=== PATIENT | female | born 1950 | race Caucasian/White ===

== ENCOUNTER 2016-12-16 20:25 | Observation (INO) ==
[2016-12-16] MEDS ORDERED: 0.9 % Sodium Chloride 1,000 ML IVC ONE (20:42)
--- NOTE | 2016-12-16 21:04 | Emergency Department Note ---
Disposition Clinical Impression: Altered awareness, transient, NESHA (acute kidney injury) Disposition: Admitted As Inpatient Condition: Good Time of Disposition: 21:22 Altered Mental Status HPI - General Chief Complaint: ED Altered Mental Status Stated Complaint: AMS Source: patient, EMS Limitations: no limitations Nursing Notes Reviewed: Yes Vital Signs Reviewed: Yes - History of Present Illness HPI Narrative: Patient is a 69-year-old female who was brought in by EMS for a transient periods of altered mental awareness. EMS states that for the first 20 minutes of their time with her she was alert and oriented only to herself. While in route she became alert nor to 4. Patient reports that she woke up this morning in an altered state and confusion that waxes and wanes. There period of clarity she was able to call EMS and she was taken to [place] ED. Patient had a workup there to include CT scan of her head which was negative for hemorrhage. After negative workup patient was discharged home. A few hours later patient became altered again which led to EMS bringing her in this time today. Patient was started on antibiotics for right-sided otitis media 1 day ago. Patient states she started her antibiotic regimen. 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 - Related Data Home Medications Medication Instructions Recorded Confirmed Bydureon 2 mg SQ 12/15/16 Cymbalta 90 mg PO DAILY 12/15/16 Estropipate 1.25 mg PO DAILY 12/15/16 Lamictal 150 mg PO DAILY 12/15/16 Lisinopril 10 mg PO DAILY 12/15/16 Metoprolol 25 mg PO DAILY 12/15/16 PriLOSEC 20 mg PO DAILY 12/15/16 Synthroid 112 mcg PO QAM 12/15/16 metFORMIN 500 mg PO BID 12/15/16 Ibuprofen [Ibuprofen] 800 mg PO TID PRN 12/16/16 12/16/16 Mirabegron [Myrbetriq] 25 mg PO DAILY 12/16/16 12/16/16 Previous Rx's Medication Instructions Recorded Santiago/Poly/HC *EAR* SOLN 4 drop RIGHT EAR QID #1 solution 12/15/16 [Cortisporin *EAR* SOLN] Allergies Allergy/AdvReac Type Severity Reaction Status Date / Time acetaminophen [From Vicodin] AdvReac Itching Verified 12/15/16 16:42 hydrocodone [From Vicodin] AdvReac Itching Verified 12/15/16 16:42 All systems ED: reviewed and negative except as stated. Review of Systems: As Per HPI Constitutional: Denies: fever, weakness Eyes: Denies: eye pain, eye discharge ENT ED: Denies: ear pain, throat pain Cardiovascular: Denies: chest pain, palpitations Respiratory: Denies: cough, dyspnea Gastrointestinal: Denies: abdominal pain, nausea, vomiting, diarrhea, hematemesis, melena, hematochezia Genitourinary: Denies: urgency, dysuria, hematuria, discharge Musculoskeletal: Denies: back pain, neck pain Integumentary: Denies: rash, abrasion Neurological: Denies: headache, weakness Psychiatric: Reports: depression. Denies: anxiety Endocrine: Reports: fatigue Past Medical History - Past Medical History Source: patient Medical history: Reports: diabetes, hypertension, thyroid disease Surgical history: Reports: appendectomy, cholecystectomy, hysterectomy, other ( Donated kidney, TMJ, neck surgery) Psychiatric history: Reports: depression - Social History Smoking Status: Former smoker Smokeless Tobacco Status: No Alcohol use: Reports: none Drug use: Reports: none Physical Exam - General Limitations: no limitations General appearance: alert, in no apparent distress - Head Head exam: atraumatic, normocephalic, normal inspection - Eye Eye exam: Present: normal appearance, PERRL, EOMI - ENT ENT exam: normal exam, normal oropharynx, mucous membranes moist - Neck Neck exam: Present: normal inspection, full ROM, trachea midline - Chest Chest inspection: Present: normal inspection, symmetric chest wall rise - Respiratory Respiratory exam: Present: normal lung sounds bilaterally - Cardiovascular Cardiovascular exam: Present: regular rate, normal rhythm, normal heart sounds - Abdominal Exam Abdominal exam: Present: soft, Non-Tender. Absent: tenderness, distention, guarding, rebound, rigidity Course - Consultations Consultation #1: Dr. Vargas and the hospitalist has accepted patient for admission and continuation of care. Time: 23:15 Consultation #2: I discussed patient's transient altered well as with Dr. Bone of neurology who states he was see patient tomorrow and patient may possibly need EEG study to see if she is having underlying seizure activity. Arachnoid cysts found on an earlier CT per Dr. Bone states should not cause any issues. Time: 23:25 Vital Signs Temperature 98.7 F 12/16/16 20:27 Pulse Rate 66 12/16/16 20:27 Respiratory Rate 18 12/16/16 20:27 Blood Pressure 108/56 12/16/16 20:27 O2 Sat by Pulse Oximetry 97 12/16/16 20:27 Temperature 98.7 F 12/16/16 20:27 Pulse Rate 66 12/16/16 20:27 Respiratory Rate 18 12/17/16 00:01 Blood Pressure 111/79 12/17/16 00:01 O2 Sat by Pulse Oximetry 97 12/16/16 20:27 Oxygen Delivery Oxygen Delivery Room Air Altered Mental Status - MDM Narrative Medical decision making narrative: Patient presents with transient periods of altered mental status of unknown etiology currently alert and oriented 4 and in no acute distress. Patient requests to be able to go home because she has a small dog at home and she lives by herself. Patient states that she understands that we do not know what is causing these periods of altered mental state, and would like to continue her workup but no findings that she has no one to help her out or to check on her dog. Patient states that when she is care for her dog in order she will be back to continue her workup and possible admission. Patient currently appears to have clear mental capability and capacity to make decisions for herself. Patient came in by EMS and will not drive home and will be advised not to drive at all until her workup is complete. Patient agrees to have all her lab work drawn and performed before discharge. Patient understands and agrees to treatment and plan. While patient was undergoing her workup she was able to find someone to watch her dog and has decided to stay. Patient's workup shows a mildly elevated creatinine. Patient has a slight NESHA. At this moment I do not have a clear etiology for patient's hypotension for transient episodes of altered awareness/confusion. Recommend admission for further workup. Patient understands and agrees his treatment and plan. Patient has been accepted for admission by Dr. Vargas the hospitalist. Discussed case with Dr. Bone of neurology for possibility of underlying seizure activity , and CT findings of arachnoid cyst. He states arachnoid cyst should not be the cause of patient's hypotension. Given the patient has no neurological deficits he believes underlying seizure activity may be occurring but we will assess patient tomorrow and if needed, perform EEG. - Medical Records Medical records reviewed: Yes I reviewed the patient's medical records. CT scan from earlier at [place] ED shows arachnoid cyst - Lab Data Lab results reviewed: Yes I reviewed the patient's lab results. Result diagrams: 12/16/16 21:23 12/16/16 21:23 Lab Results 12/16/16 12/16/16 12/16/16 Range/Units 21:23 21:23 21:23 WBC 7.8 (4.3-11.1) K/mcL RBC 4.55 (3.82-4.97) M/mcL Hgb 13.1 (11.5-15.4) g/dL Hct 39.7 (35.3-44.9) % MCV 87.3 (83.0-100.0) fL MCH 28.8 (28.0-33.3) pg MCHC 33.0 (31.6-35.5) g/dL RDW 12.7 (11.5-14.5) % Plt Count 213 (140-400) K/mcL MPV 9.9 (9.4-12.4) fL Immature Gran % 0.4 (0-4) % Seg Neutrophils % 64.9 % Lymphocytes % 24.0 % Monocytes % 8.6 % Eosinophils % 1.7 % Basophils % 0.4 % Neutrophils # 5.0 (1.6-8.9) K/mcL Lymphocytes # 1.9 (0.6-4.6) K/mcL Monocytes # 0.7 (0.0-1.3) K/mcL Eosinophils # 0.1 (0.0-0.6) K/mcL Basophils # 0.0 (0.0-0.2) K/mcL Sodium 137 (136-145) mEq/L Potassium 4.5 (3.5-4.5) mEq/L Chloride 104 (98-109) mEq/L Carbon Dioxide 27 (19-29) mEq/L BUN 15 (7-20) mg/dL Creatinine 1.16 H (0.57-1.11) mg/dL Est GFR ( Amer) 56 L (> 60) Est GFR (Non-Af Amer) 47 L (> 60) BUN/Creatinine Ratio 13 (6-26) Glucose 92 (70-99) mg/dL Calculated Osmolality 284 (280-300) Calcium 9.6 (8.6-10.8) mg/dL Troponin I 0.01 (0-0.03) ng/mL Urine Color (Yellow) Urine Clarity (Clear) Urine pH (5.0-8.0) pH Units Ur Specific [place] (1.010-1.025) Urine Protein (Neg-Trace) mg/dL Urine Glucose (UA) (Normal) mg/dL Urine Ketones (Negative) mg/dL Urine Blood (Negative) Urine Nitrite (Negative) Urine Bilirubin (Negative) Urine Urobilinogen (Normal) mg/dL Ur Leukocyte Esterase (Negative) Urine Microscopic RBC (0-3) per hpf Urine Microscopic WBC (0-3) per hpf Ur Squamous Epith Cells (None-Few) per lpf Urine Bacteria (None-Few) per hpf Hyaline Casts (None-Few) per lpf Ur Culture Indicated? (NO) Urine Opiates Screen (Savndu=841) ng/mL Ur Barbiturates Screen (Rqnnio=997) ng/mL Ur Phencyclidine Scrn (Cutoff=25) ng/mL Ur Amphetamines Screen (Dwgavw=2462) ng/mL U Benzodiazepines Scrn (Svpxuf=136) ng/mL Urine Cocaine Screen (Cutoff= 300) ng/mL U Marijuana (THC) Screen (Cutoff = 50) ng/mL Ethyl Alcohol < 10 (0-10) mg/dL 12/16/16 12/16/16 Range/Units 22:38 22:38 WBC (4.3-11.1) K/mcL RBC (3.82-4.97) M/mcL Hgb (11.5-15.4) g/dL Hct (35.3-44.9) % MCV (83.0-100.0) fL MCH (28.0-33.3) pg MCHC (31.6-35.5) g/dL RDW (11.5-14.5) % Plt Count (140-400) K/mcL MPV (9.4-12.4) fL Immature Gran % (0-4) % Seg Neutrophils % % Lymphocytes % % Monocytes % % Eosinophils % % Basophils % % Neutrophils # (1.6-8.9) K/mcL Lymphocytes # (0.6-4.6) K/mcL Monocytes # (0.0-1.3) K/mcL Eosinophils # (0.0-0.6) K/mcL Basophils # (0.0-0.2) K/mcL Sodium (136-145) mEq/L Potassium (3.5-4.5) mEq/L Chloride (98-109) mEq/L Carbon Dioxide (19-29) mEq/L BUN (7-20) mg/dL Creatinine (0.57-1.11) mg/dL Est GFR ( Amer) (> 60) Est GFR (Non-Af Amer) (> 60) BUN/Creatinine Ratio (6-26) Glucose (70-99) mg/dL Calculated Osmolality (280-300) Calcium (8.6-10.8) mg/dL Troponin I (0-0.03) ng/mL Urine Color Yellow (Yellow) Urine Clarity Clear (Clear) Urine pH 6.0 (5.0-8.0) pH Units Ur Specific [place] 1.030 H (1.010-1.025) Urine Protein Trace (Neg-Trace) mg/dL Urine Glucose (UA) Normal (Normal) mg/dL Urine Ketones Negative (Negative) mg/dL Urine Blood Negative (Negative) Urine Nitrite Negative (Negative) Urine Bilirubin Negative (Negative) Urine Urobilinogen Normal (Normal) mg/dL Ur Leukocyte Esterase Negative (Negative) Urine Microscopic RBC 0-3 (0-3) per hpf Urine Microscopic WBC 3-5 H (0-3) per hpf Ur Squamous Epith Cells Many H (None-Few) per lpf Urine Bacteria Few (None-Few) per hpf Hyaline Casts None Seen (None-Few) per lpf Ur Culture Indicated? NO (NO) Urine Opiates Screen Negative (Vkgwyy=689) ng/mL Ur Barbiturates Screen Negative (Zilhub=354) ng/mL Ur Phencyclidine Scrn Negative (Cutoff=25) ng/mL Ur Amphetamines Screen Negative (Qbokqh=1024) ng/mL U Benzodiazepines Scrn Negative (Xauyos=552) ng/mL Urine Cocaine Screen Negative (Cutoff= 300) ng/mL U Marijuana (THC) Screen Negative (Cutoff = 50) ng/mL Ethyl Alcohol (0-10) mg/dL - Radiology Data Radiology results reviewed: Yes I reviewed the patient's radiology results. Chest X-Ray 12/16/16 21:01 IMPRESSION: No acute abnormality. D/ / Jose Narayanan MD / Jose Narayanan MD Interpreting Provider: Jose Narayanan MD - EKG Data EKG attestation: Yes I reviewed and interpreted this EKG. EKG shows normal: sinus rhythm Rate: normal Rhythm: NSR TPA Checklist - LKW: 3-4.5 hrs Add. Warnings/Precautions Patient/family understanding: The patient/family members have been counseled and understood the risk, benefit , and alternatives of treatment.
--- NOTE | 2016-12-16 21:25 | Emergency Department Note ---
START Narrative - START START: I examined this patient and my medical decision-making was reviewed with the ADMINISTRATION PHYSICIAN/PA/Advanced Practice Nurse/Resident Physician. I agree with the documented findings, disposition and treatment plan as described except to the extent set forth below. ED attending note: I saw this Patient with the emergency medicine resident Dr. VASQUEZ. Please see a copy of his note for details of the H&P, evaluation, management and disposition of this emergency Department patient. We independently had [id number] contact with the patient. Briefly: A 66-year-old female was seen earlier several hours ago at [facility] for transient awareness head CT lab work and EKG were within normal limits and patient discharged home. To a half hours later same thing happening she came here by EMS Accu-Chek was 73 from the field. Patient is awake and alert offering no complaints at this time there was no predisposing symptomatology. No changes in medications. Denies any substance abuse. Neurologically she is nonfocal. We offered the patient workup and admission the patient declined stating that she had not take care of her small dog at home. We discussed with the patient that we would prefer for her to stay but she should be careful going home to not operate a motor vehicle by herself or engage in any other activity if she were to become confused that might be harmful. And return right away to the emergency department for continued workup and admission and evaluation. Patient does have medical decisional capacity. Patient being discharged in stable condition but unknown prognosis
[2016-12-16 21:31] LABS: Basophils % 0.4 %; Eosinophils # 0.1 K/mcL (0.0-0.6); Eosinophils % 1.7 %; Hematocrit 39.7 % (35.3-44.9); Hemoglobin 13.1 g/dL (11.5-15.4); Immature Granulocytes % 0.4 % (0-4); Lymphocytes # 1.9 K/mcL (0.6-4.6); Mean Corpuscular Hemoglobin 28.8 pg (28.0-33.3); Mean Corpuscular Volume 87.3 fL (83.0-100.0); Mean Platelet Volume 9.9 fL (9.4-12.4); Monocytes # 0.7 K/mcL (0.0-1.3); Monocytes % 8.6 %; Platelet Count 213 K/mcL (140-400); Red Blood Count 4.55 M/mcL (3.82-4.97); Red Cell Distribution Width 12.7 % (11.5-14.5); Segmented Neutrophils % 64.9 %
[2016-12-16 21:45] LABS: BUN/Creatinine Ratio 13 (6-26); Blood Urea Nitrogen 15 mg/dL (7-20); Calcium 9.6 mg/dL (8.6-10.8); Carbon Dioxide 27 mEq/L (19-29); Chloride 104 mEq/L (98-109); Glucose 92 mg/dL (70-99); Osmolality,Calculated 284 (280-300); Potassium 4.5 mEq/L (3.5-4.5); Sodium 137 mEq/L (136-145); eGFR For African Americans 56 (> 60); eGFR For Non-African Americans 47 (> 60)
[2016-12-16 21:46] LABS: Ethanol < 10 mg/dL (0-10)
[2016-12-16 22:50] LABS: Bilirubin,Urine Negative (Negative); Blood,Urine Negative (Negative); Clarity,Urine Clear (Clear); Color,Urine Yellow (Yellow); Glucose,Urine (UA) Normal (Normal); Ketones,Urine Negative (Negative); Leukocyte Esterase,Urine Negative (Negative); Nitrite,Urine Negative (Negative); Protein,Urine Trace mg/dL (Neg-Trace); Urobilinogen,Urine Normal (Normal)
[2016-12-16 22:51] LABS: Bacteria,Urine Few per hpf (None-Few); Hyaline Casts,Urine None Seen per lpf (None-Few); RBC,Urine 0-3 per hpf (0-3); Squamous Epithelial Cell,Urine Many per lpf (None-Few)
[2016-12-16 22:56] LABS: Amphetamine Screen,Urine Negative ng/mL (Cutoff=1000); Barbiturate Screen,Urine Negative ng/mL (Cutoff=200); Benzodiazepines Screen,Urine Negative ng/mL (Cutoff=200); Cannabinoid Screen,Urine Negative ng/mL (Cutoff = 50); Cocaine Screen,Urine Negative ng/mL (Cutoff= 300); Opiate Screen,Urine Negative ng/mL (Cutoff=300); Phencyclidine Screen,Urine Negative ng/mL (Cutoff=25)
[2016-12-16] MEDS ORDERED: Naloxone 0.4 MG/ML INJ IVP PRN (23:54)
--- NOTE | 2016-12-16 23:57 | Event Note ---
Date of Encounter: 12/16/16 Time of Encounter: 23:54 Patient seen and examined with medical doctor nuclear medicine. Patient presents with episodes of intermittent confusion. Etiology unclear. It might be related to mild cognitive impairment. It seems she was told before that she had episodes of memory loss. She has a CSF cysts about 4 cm. Were without absence seizures. We will get the MRI of the brain, EEG. Neurology consultation. No obvious infectious etiology. She was also intermittently hypotensive but doubted this explains her symptoms. Hold blood pressure medications and hydrate. Sugars in the ER was 92. Will check hemoglobin A-1 C. Hypoglycemia may also be contributory. Observation admission
--- NOTE | 2016-12-17 00:10 | Internal Med History&Physical ---
Date of Encounter: 12/17/16 Time of Encounter: 00:10 Assessment and Plan (1) Transient alteration of awareness Current visit: Yes Status: Acute 66 y/o female cc of transient disorientation/confusion History of hypothyroidism, diabetes, depression also reports previous issues with memory loss, had MRI in [facility] which was negative CT head shows Right parietal arachnoid cyst. 4.81.5 Denies history of seizures, TIA, stroke had episode of hypotension and has held home BP mediations unclear etiology will try to identify seizure activity EEG, neurology consult also check b12 level, TSH HgA1c start cardiac tele obtain MRI brain Dehydration: UA shows high specific gravity infectious etiology? lungs clear, does not meet sirs cirteria, UA shows no signs of infection (2) Low blood pressure Current visit: Yes Status: Acute Yesterday BP was in systolic 90s may be cause of her transient symptoms orthostatic vitals will hold home BP medications Qualifiers: Hypotension type: unspecified hypotension type Qualified Code(s): I95.9 - Hypotension, unspecified (3) Otitis externa of right ear Current visit: Yes Status: Acute diagnosed in UR with right otitis externa denies dizziness, light headedness continue antibiotic drops Qualifiers: Otitis externa type: unspecified type Chronicity: acute Qualified Code(s) : H60.501 - Unspecified acute noninfective otitis externa, right ear (4) DVT prophylaxis Current visit: Yes Status: Acute heparin SQ (5) Diabetes mellitus Current visit: Yes Status: Acute hx of DM will obtain HgA1c Low dose SSI Diabetic diet. Qualifiers: Diabetes mellitus type: type 2 Diabetes mellitus complication status: without complication Diabetes mellitus roasterman insulin use: without half-way use Qualified Code(s): E11.9 - Type 2 diabetes mellitus without complications (6) History of depression Current visit: Yes Status: Chronic stable continue home duloxetine and lamictal Internal Medicine - H&P: HPI Chief complaint: confusion Admitted From: Home Plans for Post Hospital Care: Home History of present illness: Ms. Mendoza is a 66 year old female presents with chief complaint of transient episodes of confusion/disorientation. This started after waking up in the morning yesterday. She describes her episodes as the following: Brushing her teeth but not having a toothbrush and her hand, eating out of bowl with what she though was a spoon but ended up being her fingers, hesitating when trying to make her signature. Patient had multiple more episodes of these tests are disorientation last 3-4 minutes. Initially she went to wear the ER and was found to be hypotensive. She was hydrated and her hypertensive medication lisinopril was stopped. Furthermore patient was also found to have a right ear infection and prescribed an antibiotic drop. She was then discharged home but having these episodes and returned to [facility]. She denies headache, passing out, blurry vision, difficulty swallowing, dizziness, lightheadedness, chest pain, palpitations, nausea, vomiting, abdominal pain, loss of bowel or bladder function, dysuria, cough, productive sputum, numbness, tingling, weakness. She denies history of stroke, TIA, seizures. She denies her symptoms being positional. Denies recent medication changes and is compliant with her medications. Past Med Surg Social Fam HX - Past Medical History Medical history: diabetes, hypertension, thyroid disease Psychiatric history: depression - Past Surgical History Surgical History: appendectomy, cholecystectomy, hysterectomy, other (Donated kidney, TMJ, neck surgery) - Social History Smoking Status: Former smoker Smokeless Tobacco Status: No Alcohol use: none Drug use: none - Family History Father Living Status: Age at : 53 Hx Family Cardiac Disorders: Yes ([place]) Internal Medicine - H&P: Meds DULoxetine [Cymbalta] 90 mg PO QAM 12/15/16 [History] Estropipate 1.5 mg PO DAILY 12/15/16 [History] Exenatide Microspheres [Bydureon] 2 mg SQ QWEEK 12/15/16 [History] Levothyroxine [Synthroid] 112 mcg PO 0630 12/15/16 [History] Lisinopril [Zestril] 10 mg PO DAILY 12/15/16 [History] Metoprolol [Lopressor] 25 mg PO BID 12/15/16 [History] Santiago/Poly/HC *EAR* SOLN [Cortisporin *EAR* SOLN] 4 drop RIGHT EAR QID #1 solution 12/15/16 [Rx] Omeprazole [PriLOSEC] 20 mg PO DAILY 12/15/16 [History] lamoTRIgine [Lamictal] 150 mg PO DAILY 12/15/16 [History] metFORMIN [Glucophage] 500 mg PO BIDWM 12/15/16 [History] Ibuprofen [Ibuprofen] 800 mg PO TID PRN 12/16/16 [History] Mirabegron [Myrbetriq] 25 mg PO DAILY 12/16/16 [History] Allergies acetaminophen [From Vicodin] Adverse Reaction (Verified 12/15/16 16:42) Itching hydrocodone [From Vicodin] Adverse Reaction (Verified 12/15/16 16:42) Itching All Systems PM: A 10-system review of systems was performed and is negative for pertinent findings except as documented above in the HPI. - Constitutional Vitals: Temp Pulse Resp BP Pulse Ox 98.7 F 66 18 111/79 97 12/16/16 20:27 12/16/16 20:27 12/17/16 00:01 12/17/16 00:01 12/16/16 20:27 - Other Additional findings: General: Alert and oriented to place time and situation. Without distress HEENT: Head atraumatic, normocephalic, EOMI, PERRLA, neck nontender to palpation , absent Lymphadenopathy, Moist Mucous Membranes, Heart: Regular rate and rhythm with no murmur Lungs: Clear to auscultation bilaterally Abdomen: Soft nontender, nondistended positive bowel sounds Extremities: Absent pedal edema, Neuro: Cranial nerves II through XII intact, sensation equal bilaterally, strength upper and lower extremity 5/5, alert oriented 3 Vascular: Pedal and radial pulses 2 out of 4 Internal Med - H&P Results - Labs CBC & Chem 7: 12/16/16 21:23 12/16/16 21:23
[2016-12-17] MEDS ORDERED: D5% in Water 1,000 ML IVC PRN (00:28)
[2016-12-17] MEDS ORDERED: Dextrose Gel 15 GM PO PRN ×2 (00:28)
[2016-12-17] MEDS ORDERED: *HR* Dextrose 50 % in Water (Syg) 50 ML SYRINGE IVP PRN (00:28)
[2016-12-17 02:24] LABS: Hemoglobin A1C 5.2 %
[2016-12-17] MEDS: *HR* Heparin 5,000 UNIT/ML VIAL SQ SCH ×2 (05:59→17:36)
[2016-12-17] MEDS: Insulin LISPRO 300 UNITS/3 ML VIAL SQ SCH ×3 (09:09→17:36)
[2016-12-17] MEDS: Cortisporin *EAR* SOLN 10 ML BOTTLE RIGHT EAR SCH ×4 (09:26→21:51)
[2016-12-17] MEDS: lamoTRIgine 100 MG TABLET PO SCH (09:27)
[2016-12-17] MEDS: (Mirabegron [Myrbetriq] 25 MG) PO SCH (09:27)
--- NOTE | 2016-12-17 11:42 | Electrocardiograph Report ---
[place] [id number] Test Date: 2016-12-16 Pat Name: Vivi Mendoza Department: 103 Room: 3B Gender: F Food General Manager: [employer] : 1950 Requested By: Gordon Hoffman Order Number: [id number] Reading MD: Chilo Perez Measurements Intervals [place] Rate: 66 P: 31 MS: 129 QRS: 45 QRSD: 90 T: 62 QT: 380 QTc: 393 Interpretive Statements SINUS RHYTHM Electronically Signed On 12-17-2016 11:41:06 EDT by Chilo Perez
--- NOTE | 2016-12-17 14:13 | EEG/EMG/Oth Biometrics Report ---
EEG Procedure Report Date of procedure: 12/17/16 EEG Procedure: Routine EEG Procedure Note: This EEG was acquired with standard international 1020 system with EKG recording. The background EEG activity was characterized by the presence of posterior dominant low amplitude, fast rhythm background activity The background activity was reactive to eye openings. Sleep stages were characterized by the presence of background fragmentation, vertex waves, K complexes, and sleep spindles. There are no electrographic seizures identified during this tracing. There are no epileptiform discharges and focal slowing noted during this recording. Photic stimulation produced no abnormalities. Hyperventilation procedure was not performed EKG tracing showed no significant cardiac dysrhythmia. Impression: This is essentially a normal awake and asleep EEG. Clinical Correlation: Normal EEGs, however, do not exclude epilepsy. Clinical correlation advised.
--- NOTE | 2016-12-17 15:38 | Neurology - Consult Note ---
Date of Encounter: 12/17/16 Time of Encounter: 15:35 Assessment and Plan (1) CVA (cerebral vascular accident) Current Visit: Yes Status: Acute The patient developed speech difficulty and transient mental status changes likely explained by new onset of acute infarct, multiple small foci of ischemic infarct, involving the left MCA territory both subcortical and cortical. This appears to be thrombo-embolic or embolic in etiology. With MRI of brain showing presence of previous cerebral infarct involving the right parietal and occipital region the major concern would be embolic stroke from cardiac source. Therefore, will recommend getting JOSE ALFREDO, carotid artery duplex study, Start Aspirin 325mg daily first dose now. Check lipid panel and start statin therapy if indicated. Speech/swallow eval already in place. Continue medical and supportive care. Qualifiers: CVA mechanism: embolism Precerebral and cerebral artery: middle cerebral artery Laterality of affected vessel: left Qualified Code(s): I63.412 - Cerebral infarction due to embolism of left middle cerebral artery History of Present Illness Chief complaint: speech difficulty and confusiion HPI: Ms. Mendoza is a 66 year old female with PMH significant for HTN, DM and s/p cervical spinal fusion surgeries x2 who developed acute onset of speech difficulty and confusion starting yesterday morning. She states that yesterday morning she suddenly developed speech difficulty and though the might developed a stroke and she looked at the mirror looking for facial droop but it looked symmetric but she though she might had a stroke. Apparently, symptoms came and went and she finally called EMS. She has no focal weakness however. MRI of brain showed multiple cerebral infarct at the left MCA territory and also chronic encephalmalacia at the right parieto-occipital region. There appears to be T-2 shine through phenomenon. Patient currently feels fine. She is concerned about her dog at home and she lives alone. she has no knowledge of a previous stroke. Past Med Surg Social Fam HX - Past Medical History Medical history: diabetes, hypertension, thyroid disease Psychiatric history: depression - Past Surgical History Surgical History: appendectomy, cholecystectomy, hysterectomy, other (Donated kidney, TMJ, neck surgery) - Social History Smoking Status: Former smoker Smokeless Tobacco Status: No Alcohol use: none Drug use: none - Family History Father Living Status: Age at : 53 Hx Family Cardiac Disorders: Yes (DE) Medications and Allergies DULoxetine [Cymbalta] 90 mg PO QAM 12/15/16 [History] Estropipate 1.5 mg PO DAILY 12/15/16 [History] Exenatide Microspheres [Bydureon] 2 mg SQ QWEEK 12/15/16 [History] Levothyroxine [Synthroid] 112 mcg PO 0630 12/15/16 [History] Lisinopril [Zestril] 10 mg PO DAILY 12/15/16 [History] Metoprolol [Lopressor] 25 mg PO BID 12/15/16 [History] Santiago/Poly/HC *EAR* SOLN [Cortisporin *EAR* SOLN] 4 drop RIGHT EAR QID #1 solution 12/15/16 [Rx] Omeprazole [PriLOSEC] 20 mg PO DAILY 12/15/16 [History] lamoTRIgine [Lamictal] 150 mg PO DAILY 12/15/16 [History] metFORMIN [Glucophage] 500 mg PO BIDWM 12/15/16 [History] Ibuprofen [Ibuprofen] 800 mg PO TID PRN 12/16/16 [History] Mirabegron [Myrbetriq] 25 mg PO DAILY 12/16/16 [History] Allergies acetaminophen [From Vicodin] Adverse Reaction (Verified 12/15/16 16:42) Itching hydrocodone [From Vicodin] Adverse Reaction (Verified 12/15/16 16:42) Itching All Systems: A 10-system review of systems was performed and is negative for pertinent findings except as documented above in the HPI. Physical Examination - Vital Signs Vital Signs: Initial Vital Signs Temp Pulse Resp BP Pulse Ox 98.7 F 66 18 108/56 97 12/16/16 20:27 12/16/16 20:27 12/16/16 20:27 12/16/16 20:27 12/16/16 20:27 - Constitutional General appearance: comfortable - Neurologic Sensorimotor examination: intact Detailed motor examination: grossly full strength in all extremities Motor examination - right side: 5/5: deltoids, biceps, triceps, wrist flexion, wrist extension, rod bending machine operator, hip flexors, tibialis Anterior, quadriceps, toe extension (EHL), plantarflexion Motor examination - left side: 5/5: deltoids, biceps, triceps, wrist flexion, wrist extension, hip flexors, rod bending machine operator, quadriceps, tibialis Anterior, toe extension (EHL), plantarflexion Detailed sensory examination: intact Posture: other Reflex and gait examination: intact Reflexes: Biceps: 1+, Triceps: 1+, Brachioradialis: 1+, Patella: 1+, Achilles: 1 + Mental Status Examination: awake, alert, oriented to person, oriented to place, oriented to time, follows commands appropriately, answers questions appropriately, no agnosia, no aphasia, no aproxia Cranial nerve examination: PERRL, EOMI, visual jules intact, corneal reflexes brisk symmetrically, sensory to face intact, mastication intact, no facial asymmetry is present, no dysarthria, hearing is intact symmetrically, soft palate elevates bilaterally upon phonation, gag reflex intact, flexes SCM and trapezius muscles symmetrically with full power, tongue protrudes midline, no atrophy or facial fasiculations present Cerebellar examination: no dysmetria, performs finger to nose and heel to santos symmetrically without ataxia, no gait ataxia, no truncal ataxia, no difficulty with rapid alternating movements Results - Laboratory Findings CBC and BMP: 12/16/16 21:23 12/16/16 21:23 Abnormal lab findings: Abnormal lab results Creatinine 1.16 mg/dL (0.57-1.11) H 12/16/16 21:23 Est GFR ( Amer) 56 (> 60) L 12/16/16 21:23 Est GFR (Non-Af Amer) 47 (> 60) L 12/16/16 21:23 TSH 0.041 mcIU/mL (0.350-4.840) L 12/17/16 03:40 Ur Specific [place] 1.030 (1.010-1.025) H 12/16/16 22:38 Urine Microscopic WBC 3-5 per hpf (0-3) H 12/16/16 22:38 Ur Squamous Epith Cells Many per lpf (None-Few) H 12/16/16 22:38 Consult Discharge Plan - Plan Referrals: Anneliese Carrillo, CONSUMER ANALYST [Primary Care Provider] -
[2016-12-17] MEDS: Aspirin Enteric Coated 325 MG Tablet PO SCH (15:56)
--- NOTE | 2016-12-17 16:06 | Internal Med Progress Note ---
Date of Encounter: 12/17/16 Time of Encounter: 15:30 - Assessment and plan (1) CVA (cerebral vascular accident) Current Visit: Yes Status: Acute Assessment and plan: Per MRI, pt has multiple small foci of ischemic infarct involving the left MCA territory. MRI also showed remote infarct involving the right parietal and occipital region. Embolic stroke, pt denies history of a-fib and is not anticoagulated,. EEG normal, MRI as above. CT showed right parietal arachnoid cyst, no acute intracranial abnormality. EKG NSR rate 60, ID interval 123, PRS dur 93, QTc 393. Pt denies history of a-fib or hypercoaguability. JOSE ALFREDO is ordered and pending Carotid dopplers ordered and pending ASA 325mg po daily Lipid panel-Statin if results warrant Speech and swallow completed NIH Qualifiers: CVA mechanism: embolism Precerebral and cerebral artery: middle cerebral artery Laterality of affected vessel: left Qualified Code(s): I63.412 - Cerebral infarction due to embolism of left middle cerebral artery (2) Transient alteration of awareness Current Visit: Yes Status: Acute Assessment and plan: Pt reports feeling confused intermittently for a few weeks, so much so that others commented on it. She was brushing her teeth yesterday and did not have a toothbrush in her hand. EEG negative, brain MRI with multiple small foci of recent ischemic change. Head CT with R parietal arachnoid cyst and mild degree of small vessel disease in the perventricular white mattter. Telemetry TTE ordered Carotid dopplers ASA 325 mg po daily, first dose now Check lipid panel, start statin if needed after results. Neuro has been consulted and has seen the patient. (3) Otitis externa of right ear Current Visit: Yes Status: Acute Assessment and plan: Continue antibiotic gtts Qualifiers: Otitis externa type: unspecified type Chronicity: acute Qualified Code(s) : H60.501 - Unspecified acute noninfective otitis externa, right ear (4) NESHA (acute kidney injury) Current Visit: Yes Status: Acute Assessment and plan: Monitor labs. Avoid nephrotoxins and NSAIDs. (5) Diabetes mellitus Current Visit: Yes Status: Acute Assessment and plan: Continue accuchecks ac/hs Diabetic diet SSI A1c 5.2 Qualifiers: Diabetes mellitus type: type 2 Diabetes mellitus complication status: without complication Diabetes mellitus nursing home insulin use: without nursing home use Qualified Code(s): E11.9 - Type 2 diabetes mellitus without complications (6) History of depression Current Visit: Yes Status: Chronic Assessment and plan: Chronic. Continue home medications. (7) DVT prophylaxis Current Visit: Yes Status: Acute Assessment and plan: Heparin SQ - Time Spent With Patient less than 15 minutes - Subjective Interval history: Pt sitting up in bed, alert, awake, pt was unaware of prior CVA. She is aware of testing and agrees with plan. She denies headache or vision changes. Pt states that she needs to go home because she has no one to care for her dog. - Constitutional Vitals: Temp Pulse Resp BP Pulse Ox 98.1 F 59 16 104/69 95 12/17/16 11:09 12/17/16 11:09 12/17/16 11:09 12/17/16 11:12/17/16 11:09 General appearance: Present: cooperative, A&O X 3, pleasant, answers questions appropriately - Head Head exam: Present: normal inspection - Eye Eye exam: Present: EOMI, normal appearance, conjuntiva pink. Absent: nystagmus , PERRL - ENT ENT exam: Present: mucous membranes moist, normal exam, normal external ear exam - Neck Neck exam general surgery: Present: normal inspection. Absent: lymphadenopathy , tenderness - Respiratory Respiratory exam: Present: CTAB. Absent: rales, respiratory distress, rhonchi, stridor, wheezes - Cardiovascular Cardiovascular exam: Present: RRR, +S1, +S2. Absent: clicks, diastolic murmur, gallop, systolic murmur - GI/Abdominal GI/Abdominal exam: Present: hepatomegaly, normal bowel sounds, soft. Absent: tenderness - Neurological Exam Neurological exam: Present: alert, oriented X3, no focal deficits. Absent: facial droop, speech deficit - Skin Skin exam: Present: dry, intact, warm Internal Medicine: Result - Labs CBC & Chem 7: 12/16/16 21:23 12/16/16 21:23 - Impressions Impressions Brain MRI 12/17/16 08:14 IMPRESSION: Multiple small foci of recent ischemic change bilaterally findings are greatest in the left parietal region involving cortex and white matter. Right parietal occipital encephalomalacia with surrounding gliosis. The high diffusion signal in the surrounding parenchyma is indeterminate and likely represents sequela of T2 shine through. Subtle superimposed recent ischemic change in this distribution would be difficult to exclude. D/ / Dago Rutherford / Dago Rutherford Interpreting Provider: Dago Rutherford Consult Discharge Plan - Plan Referrals: Anneliese Carrillo, LOG YARD MANAGER [Primary Care Provider] -
[2016-12-17] MEDS ORDERED: Insulin LISPRO 300 UNITS/3 ML VIAL SQ SCH (21:00)
[2016-12-18] MEDS: *HR* Heparin 5,000 UNIT/ML VIAL SQ SCH (06:11)
[2016-12-18] MEDS: lamoTRIgine 100 MG TABLET PO SCH (07:39)
[2016-12-18] MEDS: Cortisporin *EAR* SOLN 10 ML BOTTLE RIGHT EAR SCH ×2 (07:39→14:58)
[2016-12-18] MEDS: Aspirin Enteric Coated 325 MG Tablet PO SCH (07:39)
[2016-12-18] MEDS: Insulin LISPRO 300 UNITS/3 ML VIAL SQ SCH ×2 (07:39→12:06)
[2016-12-18 08:35] LABS: Basophils % 0.6 %; Eosinophils # 0.1 K/mcL (0.0-0.6); Eosinophils % 2.7 %; Hematocrit 44.8 % (35.3-44.9); Hemoglobin 14.6 g/dL (11.5-15.4); Immature Granulocytes % 0.4 % (0-4); Lymphocytes # 1.7 K/mcL (0.6-4.6); Mean Corpuscular HGB Conc 32.6 g/dL (31.6-35.5); Mean Corpuscular Hemoglobin 28.3 pg (28.0-33.3); Mean Platelet Volume 10.1 fL (9.4-12.4); Monocytes # 0.5 K/mcL (0.0-1.3); Monocytes % 8.5 %; Neutrophils # 2.9 K/mcL (1.6-8.9); Platelet Count 227 K/mcL (140-400); Red Blood Count 5.15 M/mcL (3.82-4.97); Red Cell Distribution Width 12.3 % (11.5-14.5); Segmented Neutrophils % 54.8 %
[2016-12-18 08:56] LABS: BUN/Creatinine Ratio 14 (6-26); Blood Urea Nitrogen 15 mg/dL (7-20); Calcium 10.3 mg/dL (8.6-10.8); Carbon Dioxide 26 mEq/L (19-29); Chloride 104 mEq/L (98-109); Glucose 77 mg/dL (70-99); Osmolality,Calculated 288 (280-300); Potassium 4.1 mEq/L (3.5-4.5); Sodium 139 mEq/L (136-145); eGFR For African Americans > 60 (> 60); eGFR For Non-African Americans 52 (> 60)
[2016-12-18 08:58] LABS: Chol/HDL Ratio 4.6 (0-4.9)
[2016-12-18] MEDS: (Mirabegron [Myrbetriq] 25 MG) PO SCH (11:33)
[2016-12-18 12:02] VITALS: BP 129/81
--- NOTE | 2016-12-18 15:15 | Discharge Summary ---
Date of Encounter: 12/18/16 Time of Encounter: 07:50 - Discharge Diagnosis (1) CVA (cerebral vascular accident) Priority: Primary Status: Acute Comments: Pt with both acute and remote CVA. Pt has had acute infarct, multiple small foci of ischemic infarct involving the left MCA territory, both subcortical and cortical. Pt has remote CVA in right parietal and occippital region. Concern was for emolic stroke fromk cardiac source. Echo done today showed LVEF 65-70%, evidence of mild LVDD, no valvualr dysfunction and no evidence of PFO. EMG was negative.Chest xray with no acute abnormality. Carotid dopplers showed right mid ICA 40-59% stenosis and left proximal ICA has severe, 60-79% stenosis. Pt has been started on ASA 325mg po daily, first dose was yesterday. She has been started on a statin. She will need to follow up with neurology in the clinic outpatient. Pt is neurologically intact, speech and swallow are intact. She is able to ambulate with a steady gait. She reports that she is back at her baseline. Qualifiers: CVA mechanism: embolism Precerebral and cerebral artery: middle cerebral artery Laterality of affected vessel: left Qualified Code(s): I63.412 - Cerebral infarction due to embolism of left middle cerebral artery (2) Transient alteration of awareness Priority: Secondary Status: Resolved Comments: Resolved. Pt pt history. Plan as above. (3) Otitis externa of right ear Priority: Secondary Status: Acute Comments: Continue home gtts. Qualifiers: Otitis externa type: unspecified type Chronicity: acute Qualified Code(s) : H60.501 - Unspecified acute noninfective otitis externa, right ear (4) NESHA (acute kidney injury) Priority: Secondary Status: Acute Comments: Renal function has returned to normal. I have encouraged pt to stay hydrated and avoid nephrotoxins. (5) Diabetes mellitus Priority: Secondary Status: Acute Comments: A1c 5.2 Continue Metformin and discuss stopping medication with PCP. Qualifiers: Diabetes mellitus type: type 2 Diabetes mellitus complication status: without complication Diabetes mellitus long term care administrator insulin use: without nursing home use Qualified Code(s): E11.9 - Type 2 diabetes mellitus without complications (6) History of depression Priority: Secondary Status: Chronic Comments: continue home medications. (7) DVT prophylaxis Priority: Secondary Status: Acute Comments: Heparin SQ - Discharge Medications Prescriptions: Aspirin Enteric Coated [Aspirin EC] 325 mg PO DAILY #30 tab Simvastatin [Zocor] 10 mg PO HS #30 tablet Home Medications: DULoxetine [Cymbalta] 90 mg PO QAM 12/15/16 [History] Estropipate 1.5 mg PO DAILY 12/15/16 [History] Exenatide Microspheres [Bydureon] 2 mg SQ QWEEK 12/15/16 [History] Levothyroxine [Synthroid] 112 mcg PO 0630 12/15/16 [History] Lisinopril [Zestril] 10 mg PO DAILY 12/15/16 [History] Metoprolol [Lopressor] 25 mg PO BID 12/15/16 [History] Santiago/Poly/HC *EAR* SOLN [Cortisporin *EAR* SOLN] 4 drop RIGHT EAR QID #1 solution 12/15/16 [Rx] Omeprazole [PriLOSEC] 20 mg PO DAILY 12/15/16 [History] lamoTRIgine [Lamictal] 150 mg PO DAILY 12/15/16 [History] metFORMIN [Glucophage] 500 mg PO BIDWM 12/15/16 [History] Ibuprofen 800 mg PO TID PRN 12/16/16 [History] Mirabegron [Myrbetriq] 25 mg PO DAILY 12/16/16 [History] Aspirin Enteric Coated [Aspirin EC] 325 mg PO DAILY #30 tab 12/18/16 [Rx] Simvastatin [Zocor] 10 mg PO HS #30 tablet 12/18/16 [Rx] Allergies/Adverse Reactions: Allergies acetaminophen [From Vicodin] Adverse Reaction (Verified 12/15/16 16:42) Itching hydrocodone [From Vicodin] Adverse Reaction (Verified 12/15/16 16:42) Itching Procedures/tests Complete & Pending: Procedures Performed prior 72 hours Category Date Time Status MR head/brain wo con [MR] Routine MRI 12/17/16 08:14 Completed EV JOSE ALFREDO transesophageal echo Routine Y 12/17/16 15:18 Stop Req EV carotid duplex imaging BI Routine Y 12/17/16 15:19 Completed EV echocardiogram Routine Y 12/18/16 08:39 Completed Date of admission: 12/16/16 23:47 Primary care physician: Anneliese Carrillo CNP Consults: 12/16/16 23:55 Consult to Neurology [CONS] Routine Consulting Provider: Neurology [facility] Reason for Consult: arachnoid cyst, r/o seizures Call Completed: Yes 12/17/16 12:38 Consult to Interpret Exam [CONS] Routine Consulting Provider: Olivia More Consult to Interpret Exam: Interpret EEG 12/17/16 13:27 Consult to Broom Maker [CONS] Routine Reason for SW Consult: Transportation home 12/17/16 15:18 Consult to Speech Therapy [CONS] Stat Comment: Evaluate, develop and implement POC Reason for Consult: acute CVA Call Completed: No Discharging clinician: Gail Dumont Anticipated date of discharge: 12/18/16 - Patient Status Disposition: Home, Self-Care Functional capacity at discharge: independent ambulation Overall status at discharge: patient is back to baseline - Discharge Instructions Instructions: Diabetes Mellitus Type 2 in Adults (DC), Ischemic Stroke (DC) Additional Instructions: Please follow up with your PCP in the next 7-10 days for a follow up visit. See neurology in the office. Start your new medications tonight. Return to the ER as needed for any other problems or concerns or if your symptoms return or worsen. - Diet and Activity Activity: increase activity as tolerated Diet: advance to your usual diet Hospital course: Ms. Mendoza is a 66 year old female with a pmh of DM and depression. Pt presented to the ED with c/o transient periods of altered mental status. Pt was initially only oriented to person when she was with EMS. Pt awkenend on the morning of admission with AMS and at some point was able to to call EMS. She was brought [facility] from [place] ED. CT head was negative, chest xray was negative for acute intracranial abnormality. Carotid dopplers show right mid ICA with moderate, 40-59% stenosis , and left porximal ICA has severe 60-79% stenosis. Echo today showed LVEF 65-70 % with evidence of mild LVDD, no significant valvular dysfunction and no evidence of PFO. EEG was essentially normal awake and asleep EEG. Brain MRI Multiple small foci of recent ischemic change bilaterally findings are greatest in the left parietal region involving cortex and white matter. Right parietal occipital encephalomalacia with surrounding gliosis. The high diffusion signal in the surrounding parenchyma is indeterminate and likely represents sequela of T2 shine through. Subtle superimposed recent ischemic change in this distribution would be difficult to exclude. Pt was evalutated by neurology. She has been started on ASA 325mg po daily and Simvastatin 10mg po daily. Pt states that she has had muscle pain with statins in the past, but it was at a higher dose. Pt will see primary care for increases or medication changes as needed. She is neurologically intact, no deficits. She states that she has returned to baseline and has had no episodes since prior to arrival. She denies sesay, blurred vision, confusion, nausea, dizziness or lightheadedness. Pt had a mild NESHA on arrival that has resolved. A1c is wnl, again, she is taking Metformin and will follow up with PCP for medication adjustments and changes as needed. Lipid panel was elevated, started on statin as stated above. Physical exam has remained unremarkable and her vital signs, including BP, have remained stable. Pt is stable and appropriate for discharge. - Time Spent with Patient Total time spent providing and/or coordinating discharge services: Less than 30 minutes - Constitutional Vitals: Temp Pulse Resp BP Pulse Ox 97.7 F 84 16 129/81 95 12/18/16 12:01 12/18/16 12:01 12/18/16 12:01 12/18/16 12:01 12/18/16 12:01 General appearance: Present: cooperative, A&O X 3, pleasant, no acute distress, answers questions appropriately - Head Head exam: Present: normal inspection - Eye Eye exam: Present: normal appearance, PERRL, conjuntiva pink. Absent: nystagmus - ENT ENT exam: Present: mucous membranes moist, normal exam, normal external ear exam - Neck Neck exam general surgery: Present: normal inspection. Absent: lymphadenopathy , tenderness - Respiratory Respiratory exam: Present: CTAB. Absent: chest wall tenderness, decreased breath sounds, rales, respiratory distress, rhonchi, stridor, wheezes - Cardiovascular Cardiovascular exam: Present: RRR, +S1, +S2. Absent: diastolic murmur, systolic murmur - GI/Abdominal GI/Abdominal exam: Present: normal bowel sounds, soft. Absent: distended, hepatomegaly, tenderness - Extremities Exam Extremities exam: Present: normal inspection, warm, radial pulses palpable and symetrical. Absent: joint swelling, pedal edema, tenderness - Neurological Exam Neurological exam: Present: alert, normal gait, oriented X3, no focal deficits, strengths equal and symetr throughout. Absent: altered, motor sensory deficit, facial droop, speech deficit - Skin Skin exam: Present: dry, intact, warm. Absent: rash
--- NOTE | 2016-12-18 16:39 | Neurology Progress Note ---
Date of Encounter: 12/18/16 Time of Encounter: 16:35 Assessment and Plan (1) CVA (cerebral vascular accident) Current Visit: Yes Status: Acute 66-year old woman with diabetes, hypertension, hyperlipidemia, with left hemispheric cortical strokes, and prior right occipital encephalomalacia. Likely secondary to cholesterol embolus. No chest pain/palpitations were noted. ASA 325 Risk factor control. diabetes hypertension hyperlipidemia - statin started here (if continues to have adverse effects, needs to be stopped and started on fish oil/niacin. Follow-up with Dr. More in outpatient setting. Ok to go home from Neurology perspective. Qualifiers: CVA mechanism: embolism Precerebral and cerebral artery: middle cerebral artery Laterality of affected vessel: left Qualified Code(s): I63.412 - Cerebral infarction due to embolism of left middle cerebral artery Subjective Principal diagnosis: stroke Interval history: The patient is seen in follow-up. The patient was seen by Dr. More yesterday. The patient's MRI brain had revealed punctate DWI-positive lesions on the left hemisphere. Patient states that her confusion was noted upon awakening the day prior. States that the confusion has resolved. She describes no weakness. Wants to go home. She states that she is back to her baseline. She was taking ASA 81 mg at home. She had prior bad side effect to the statin, she states. No new complaints. Objective - Constitutional Vitals: Temp Pulse Resp BP Pulse Ox 97.7 F 84 16 129/81 95 12/18/16 12:01 12/18/16 12:01 12/18/16 12:01 12/18/16 12:01 12/18/16 12:01 General appearance: Present: cooperative, A&O X 3, no acute distress, answers questions appropriately - Neurological Exam Sensorimotor examination: Present: intact Motor Examination: Present: grossly full strength in all extremities Motor examination - left side: 5/5: deltoids, biceps, triceps, wrist flexion, wrist extension, hip flexors, carriage operator, quadriceps, tibialis Anterior, toe extension (EHL), plantarflexion Sensation intact: Present: intact (decreased distally in lower extremities) Posture: Present: other Reflex and gait examination: other (up going toes bilaterally) Reflexes: Biceps: 2+ (mildly asymmetrically hyper-reflexic on the right), Triceps: 2+ (mildly asymmetrically hyper-reflexic on the right), Brachioradialis : 2+ (mildly asymmetrically hyper-reflexic on the right), Patella: 2+ (mildly asymmetrically hyper-reflexic on the right), Achilles: 1+ (mildly asymmetrically hyper-reflexic on the right) Mental Status Examination: Present: awake, alert, oriented to person, oriented to place, oriented to time, follows commands appropriately, answers questions appropriately, no agnosia, no aphasia, no aproxia Cranial nerve examination: Present: PERRL, EOMI, visual jules intact, corneal reflexes brisk symmetrically, sensory to face intact, mastication intact, no facial asymmetry is present, no dysarthria, hearing is intact symmetrically, soft palate elevates bilaterally upon phonation, gag reflex intact, tongue protrudes midline, no atrophy or facial fasiculations present Cerebellar examination: Present: no dysmetria, performs finger to nose and heel to santos symmetrically without ataxia, no gait ataxia, no truncal ataxia, no difficulty with rapid alternating movements Results - Laboratory Findings CBC and BMP: 12/18/16 08:11 12/18/16 08:11 Abnormal lab findings: Abnormal lab results RBC 5.15 M/mcL (3.82-4.97) H 12/18/16 08:11 Est GFR (Non-Af Amer) 52 (> 60) L 12/18/16 08:11 POC Glucose 109 (58-89) H 12/17/16 22:02 Triglycerides 218 mg/dL (< 150) H 12/18/16 08:11 Cholesterol 246 mg/dL (< 200) H 12/18/16 08:11 LDL Cholesterol, Calc 148 mg/dL (0-99) H 12/18/16 08:11 VLDL Cholesterol, Calc 44 mg/dL (< 31) H 12/18/16 08:11 TSH 0.041 mcIU/mL (0.350-4.840) L 12/17/16 03:40 Ur Specific [place] 1.030 (1.010-1.025) H 12/16/16 22:38 Urine Microscopic WBC 3-5 per hpf (0-3) H 12/16/16 22:38 Ur Squamous Epith Cells Many per lpf (None-Few) H 12/16/16 22:38 - Diagnostic Findings Additional findings: Laboratory Results WBC 5.3 K/mcL (4.3-11.1) 12/18/16 08:11 RBC 5.15 M/mcL (3.82-4.97) H 12/18/16 08:11 Hgb 14.6 g/dL (11.5-15.4) D 12/18/16 08:11 Hct 44.8 % (35.3-44.9) 12/18/16 08:11 MCV 87.0 fL (83.0-100.0) 12/18/16 08:11 MCH 28.3 pg (28.0-33.3) 12/18/16 08:11 MCHC 32.6 g/dL (31.6-35.5) 12/18/16 08:11 RDW 12.3 % (11.5-14.5) 12/18/16 08:11 Plt Count 227 K/mcL (140-400) 12/18/16 08:11 MPV 10.1 fL (9.4-12.4) 12/18/16 08:11 Immature Gran % 0.4 % (0-4) 12/18/16 08:11 Seg Neutrophils % 54.8 % 12/18/16 08:11 Lymphocytes % 33.0 % 12/18/16 08:11 Monocytes % 8.5 % 12/18/16 08:11 Eosinophils % 2.7 % 12/18/16 08:11 Basophils % 0.6 % 12/18/16 08:11 Neutrophils # 2.9 K/mcL (1.6-8.9) 12/18/16 08:11 Lymphocytes # 1.7 K/mcL (0.6-4.6) 12/18/16 08:11 Monocytes # 0.5 K/mcL (0.0-1.3) 12/18/16 08:11 Eosinophils # 0.1 K/mcL (0.0-0.6) 12/18/16 08:11 Basophils # 0.0 K/mcL (0.0-0.2) 12/18/16 08:11 Sodium 139 mEq/L (136-145) 12/18/16 08:11 Potassium 4.1 mEq/L (3.5-4.5) 12/18/16 08:11 Chloride 104 mEq/L (98-109) 12/18/16 08:11 Carbon Dioxide 26 mEq/L (19-29) 12/18/16 08:11 BUN 15 mg/dL (7-20) 12/18/16 08:11 Creatinine 1.05 mg/dL (0.57-1.11) 12/18/16 08:11 Est GFR ( Amer) > 60 (> 60) 12/18/16 08:11 Est GFR (Non-Af Amer) 52 (> 60) L 12/18/16 08:11 BUN/Creatinine Ratio 14 (6-26) 12/18/16 08:11 Glucose 77 mg/dL (70-99) 12/18/16 08:11 POC Glucose 109 (58-89) H 12/17/16 22:02 Est Mean Plasma Glucose 103 mg/dl 12/17/16 01:17 Hemoglobin A1c 5.2 % (-5.6) 12/17/16 01:17 Calculated Osmolality 288 (280-300) 12/18/16 08:11 Calcium 10.3 mg/dL (8.6-10.8) 12/18/16 08:11 Troponin I 0.01 ng/mL (0-0.03) 12/16/16 21:23 Triglycerides 218 mg/dL (< 150) H 12/18/16 08:11 Cholesterol 246 mg/dL (< 200) H 12/18/16 08:11 LDL Cholesterol, Calc 148 mg/dL (0-99) H 12/18/16 08:11 VLDL Cholesterol, Calc 44 mg/dL (< 31) H 12/18/16 08:11 HDL Cholesterol 54 mg/dL (40-59) 12/18/16 08:11 Cholesterol/HDL Ratio 4.6 (0-4.9) 12/18/16 08:11 Vitamin B12 372 pg/mL (213-816) 12/17/16 01:17 TSH 0.041 mcIU/mL (0.350-4.840) L 12/17/16 03:40 Urine Color Yellow (Yellow) 12/16/16 22:38 Urine Clarity Clear (Clear) 12/16/16 22:38 Urine pH 6.0 pH Units (5.0-8.0) 12/16/16 22:38 Ur Specific [place] 1.030 (1.010-1.025) H 12/16/16 22:38 Urine Protein Trace mg/dL (Neg-Trace) 12/16/16 22:38 Urine Glucose (UA) Normal mg/dL (Normal) 12/16/16 22:38 Urine Ketones Negative mg/dL (Negative) 12/16/16 22:38 Urine Blood Negative (Negative) 12/16/16 22:38 Urine Nitrite Negative (Negative) 12/16/16 22:38 Urine Bilirubin Negative (Negative) 12/16/16 22:38 Urine Urobilinogen Normal mg/dL (Normal) 12/16/16 22:38 Ur Leukocyte Esterase Negative (Negative) 12/16/16 22:38 Urine Microscopic RBC 0-3 per hpf (0-3) 12/16/16 22:38 Urine Microscopic WBC 3-5 per hpf (0-3) H 12/16/16 22:38 Ur Squamous Epith Cells Many per lpf (None-Few) H 12/16/16 22:38 Urine Bacteria Few per hpf (None-Few) 12/16/16 22:38 Hyaline Casts None Seen per lpf (None-Few) 12/16/16 22:38 Ur Culture Indicated? NO (NO) 12/16/16 22:38 Urine Opiates Screen Negative ng/mL (Qfiris=975) 12/16/16 22:38 Ur Barbiturates Screen Negative ng/mL (Ziuxfe=949) 12/16/16 22:38 Ur Phencyclidine Scrn Negative ng/mL (Cutoff=25) 12/16/16 22:38 Ur Amphetamines Screen Negative ng/mL (Khzlms=9857) 12/16/16 22:38 U Benzodiazepines Scrn Negative ng/mL (Mcvtvf=742) 12/16/16 22:38 Urine Cocaine Screen Negative ng/mL (Cutoff= 300) 12/16/16 22:38 U Marijuana (THC) Screen Negative ng/mL (Cutoff = 50) 12/16/16 22:38 Ethyl Alcohol < 10 mg/dL (0-10) 12/16/16 21:23 Impressions Chest X-Ray 12/16/16 21:01 IMPRESSION: No acute abnormality. D/ / Jose Narayanan MD / Jose Narayanan MD Interpreting Provider: Jose Narayanan MD Brain MRI 12/17/16 08:14 IMPRESSION: Multiple small foci of recent ischemic change bilaterally findings are greatest in the left parietal region involving cortex and white matter. Right parietal occipital encephalomalacia with surrounding gliosis. The high diffusion signal in the surrounding parenchyma is indeterminate and likely represents sequela of T2 shine through. Subtle superimposed recent ischemic change in this distribution would be difficult to exclude. D/ / Dago Rutherford / Dago Rutherford Interpreting Provider: Dago Rutherford Consult Discharge Plan - Plan Instructions: Diabetes Mellitus Type 2 in Adults (DC), Ischemic Stroke (DC) Additional Instructions: Please follow up with your PCP in the next 7-10 days for a follow up visit. See neurology in the office. Start your new medications tonight. Return to the ER as needed for any other problems or concerns or if your symptoms return or worsen. Prescriptions: Aspirin Enteric Coated [Aspirin EC] 325 mg PO DAILY #30 tab Simvastatin [Zocor] 10 mg PO HS #30 tablet
--- NOTE | 2016-12-20 14:59 | Carotid Imaging Report ---
Carotid Duplex Patient Name:Vivi Mendoza Order Number:[id number] Procedure Date:12/17/2016 Date:1950ge:66 yrs Gender:Female Location:[facility] Room #: 3B14 [employer] Supervisor:Dante Argenis Referring MD:Gail Dumont COILED TUBING OPERATOR antique clock repairer:Anneliese Carrillo, ASSEMBLED WOOD PRODUCTS REPAIRER Reading MD:Kaiden Bonner MD , FACS Primary Indications:Acute CVA Risk Factors Yes/No Diabetes Yes Hx of CVA Yes Impressions: Findings: Right mid ICA has a moderate, 40-59% stenosis. Findings: Left proximal ICA has a severe, 60-79% stenosis. Findings Carotid Duplex: Right: There is nonstenotic plaque in the right bifurcation. There is smooth heterogeneous plaque. There is nonstenotic plaque in the right proximal internal carotid artery. There is smooth homogeneous plaque. There is 40-59% stenosis in the right mid internal carotid artery. There is smooth homogeneous plaque. Left: There is 60-79% stenosis in the left proximal internal carotid artery. There is irregular heterogeneous plaque. There is 40-59% stenosis in the left mid internal carotid artery. There is smooth heterogeneous plaque. Prior Study: No prior study available for comparison. Carotid Results Right PSV EDV Assessment Proximal CCA 113 14 Normal Mid CCA 85 16 Normal Distal CCA 94 18 Normal Bifurcation 96 16 Non Stenotic Plaque Proximal ICA 94 21 Non Stenotic Plaque Mid ICA 113 26 40-59% stenosis Distal ICA 89 25 ECA 103 19 Normal Vertebral Artery 81 23 Left PSV EDV Assessment Proximal CCA 98 26 Normal Mid CCA 81 22 Normal Distal CCA 72 23 Normal Bifurcation 86 25 Non Stenotic Plaque Proximal ICA 142 40 60-79% stenosis Mid ICA 136 36 40-59% stenosis Distal ICA 103 29 Post stenotic flow ECA 112 19 Normal Vertebral Artery 74 19 Normal Ratio's Right ICA/CCA Ratio: 1.33 ICA/CCA Values: 113/85 Left ICA/CCA Ratio: 1.75 ICA/CCA Values: 142/81 Updated by Kaiden Bonner MD, FACS on 12/17/2016 9:13:44 PM Kaiden Bonner MD electronically signed on 12/17/2016 9:14:00 PM with status of Final
== END 2016-12-18 18:30 | disposition home or self-care (01) ==
LOC: EMEROO 20:25 → 3BNU 20:25
PROVIDERS: ADMIT Hospitalist; ATTEND Registered Nurse